=== PATIENT | female | born 1995 | race Asian ===

== ENCOUNTER 2017-06-30 15:00 | Outpatient (CLI) | payer BC ==
--- NOTE | 2017-06-30 17:39 | CT ---
CT ABDOMEN AND PELVIS WITH CONTRAST 06/30/17 HISTORY: R10.84 - generalized abdominal pain. COMPARISON: CT abdomen and pelvis 12/23/14. FINDINGS/IMPRESSION: Lung bases are clear. No pericardial effusion. Liver, spleen, pancreas, and gallbladder are all unremarkable. There is an air filled peripherally radiopacity within the vaginal vault. The appendix is felt to be visualized and is normal. Mildly prominent right ileocolic lymph nodes. Normal rotation of SMA and SMV. Aortoiliac contour is normal. No free intraperitoneal gas or fluid. Spleen is unremarkable. IMPRESSION: No acute intra-abdominal abnormality. Normal appendix. Code YVETTE - Dr. Wilson at 5:17 p.m. POS: [facility]
== END 2017-06-30 15:01 | disposition home or self-care (01) ==
LOC: SCSCT 15:00
PROVIDERS: ATTEND Family Medicine
DX: R10.84 Generalized abdominal pain (principal)
CPT/HCPCS: 74177

== ENCOUNTER 2022-02-03 08:24 | Outpatient (CLI) | payer BC | END 2022-02-03 08:25 | disposition home or self-care (01) | LOC: NM 08:24 | PROVIDERS: ATTEND Family Medicine | DX: R10.13 Epigastric pain (principal) | CPT/HCPCS: 78227; A9537 ==

== ENCOUNTER 2023-08-04 13:11 | Outpatient (CLI) | payer BC | END 2023-08-04 13:12 | disposition home or self-care (01) | LOC: MRI 13:11 | PROVIDERS: ATTEND Psychiatry & Neurology Neurology | DX: M54.2 Cervicalgia (principal); R51.9 Headache, unspecified; M50.222 Other cervical disc displacement at C5-C6 level; M48.02 Spinal stenosis, cervical region; G95.89 Other specified diseases of spinal cord; M48.8X2 Other specified spondylopathies, cervical region | CPT/HCPCS: 70553; 72141 ==